=== PATIENT | male | born 1945 | race Caucasian/White ===

== ENCOUNTER 2025-07-18 23:18 | Emergency (ER) | payer OTHER, BC | END 2025-07-19 01:12 | disposition home or self-care (01) | LOC: CSHERS 23:18 | DX: S00.03XA Contusion of scalp, initial encounter (principal); I10 Essential (primary) hypertension; Z79.899 Other long term (current) drug therapy; W07.XXXA Fall from chair, initial encounter | CPT/HCPCS: 70450 ==